=== PATIENT | male | born 1965 | race Caucasian/White ===

== ENCOUNTER 2022-08-31 19:06 | Emergency (ER) | payer OTHER ==
[~2022-08-31] VITALS: Ht 165.1 cm; Wt 77.1 kg
[2022-08-31] MEDS ORDERED: CHILDREN'S ASPI81 MG PO (19:21)
[2022-08-31] MEDS ORDERED: AMLODIPINE BESYL5 MG PO (19:21)
[2022-08-31] MEDS ORDERED: ATORVASTATIN CA80 MG PO (19:22)
[2022-08-31] MEDS ORDERED: TOPROL XL25 M1 PO (19:22)
== END 2022-08-31 22:29 | disposition home or self-care (01) ==
LOC: ER 19:06
DX: R07.89 Other chest pain (principal); Z20.822 Contact with and (suspected) exposure to COVID-19; Z88.6 Allergy status to analgesic agent

== ENCOUNTER 2025-04-05 22:09 | Emergency (ER) | payer OTHER ==
[~2025-04-05] VITALS: Ht 177.8 cm; Wt 78.9 kg
[~2025-04-05 22:09] MED LIST: AMLODIPINE BESYL5 MG PO; ATORVASTATIN CA80 MG PO; CHILDREN'S ASPI81 MG PO; TOPROL XL25 M1 PO
[2025-04-06 01:23] LABS: BASO % 0.4 % (0.1-1.2); EOS # 0.10 (0.04-0.54); EOS % 1.3 % (0.7-7.0); LYMPH # 2.65 (1.18-3.74); LYMPH % 34.4 % (19.3-53.1); MEAN PLATELET VOLUME 11.10 fl (9.4-12.4); MONO # 0.70 (0.24-0.82); MONO % 9.1 % (4.7-12.5); NEUT # 4.19 (1.56-6.13); NEUT % 54.4 % (34.0-71.1); RED CELL DISTRIBUTION WIDTH 12.1 % (11.6-14.4)
[2025-04-06 02:22] LABS: ALT/SGPT 45.0 U/L (12-78); AST/SGOT 36.0 U/L (15-37); BILIRUBIN TOTAL 0.41 mg/dL (0.3-1.2); BUN CREA RATIO 19.0 (7.0-25.0); CREATININE SERUM 0.99 mg/dL (0.70-1.30); GFR 76.6; GLOBULINA 3.3 G/DL (2.4-3.5); GLUCOSE FASTING 75.0 mg/dL (65-100); OSMOLALITY SERUM 284.0 MOSM/KG (275-295)
[2025-04-06 03:10] VITALS: BP 142/82; O2SAT 99
== END 2025-04-06 03:12 ==
LOC: ER 22:09
PROVIDERS: General Practice
DX: H53.9 Unspecified visual disturbance (principal); I10 Essential (primary) hypertension; Z88.6 Allergy status to analgesic agent